=== PATIENT | male | born 1975 | race Caucasian/White ===

== ENCOUNTER 2017-12-16 13:30 | Emergency (ER) | payer MEDICAID ==
[~2017-12-16] VITALS: Ht 160 cm; Wt 98.9 kg
[2017-12-16 13:49] VITALS: BP 118/66; Ht 160 cm; Wt 98.9 kg
== END 2017-12-16 16:31 | disposition left against medical advice (07) ==
LOC: ED 13:30
DX: Z53.21 Procedure and treatment not carried out due to patient leaving prior to being seen by health care provider (principal)